=== PATIENT | male | born 2000 | race Caucasian/White ===

== ENCOUNTER 2020-10-23 01:36 | Emergency (ER) | payer MEDICAID ==
[~2020-10-23] VITALS: Ht 175.3 cm; Wt 70.3 kg
--- NOTE | 2020-10-23 01:38 | NUR ---
ANNABELLE ROSARIO. TAKEN TO CHAIR C
[2020-10-23 01:42] VITALS: BP 143/83
--- NOTE | 2020-10-23 02:00 | NUR ---
EKG PERFORMED IN PHLEBOTOMY CHAIR WITH SCREEN. EKG READS SINUS TACHYCARDIA @ 100
--- NOTE | 2020-10-23 02:05 | NUR ---
Pt states he no longer would like to be here. Dr. Esparza made aware and at chairside to explain to pt his condition. Per Pt he understands and would still like to leave against medical advice.
[2020-10-23 02:08] VITALS: BP 143/83
--- NOTE | 2020-10-23 02:08 | NUR ---
Patient does not wish to proceed with medical care recommended by Dr. Esparza. Patient given information related to possible complications, up to and including , which could occur as a result of leaving hospital at this time. Patient verbalizes understanding of risks involved leaving against medical advice. Patient has signed AMA form.
== END 2020-10-23 02:08 | disposition left against medical advice (07) ==
LOC: MED 01:36
DX: T40.601A Poisoning by unspecified narcotics, accidental (unintentional), initial encounter (principal); R07.89 Other chest pain; Y92.89 Other specified places as the place of occurrence of the external cause
CPT/HCPCS: 93005; 99283

== ENCOUNTER 2023-02-09 17:20 | Emergency (ER) | payer BC, MEDICAID ==
[~2023-02-09] VITALS: Ht 172.7 cm; Wt 88.9 kg
[2023-02-09 17:22] VITALS: BP 130/101
[2023-02-09] MEDS ORDERED: IBUP-1842 PO (18:48)
[2023-02-09] MEDS ORDERED: IBUPROFEN 600 MG TAB PO ONE (19:05)
--- NOTE | 2023-02-09 19:08 | NUR ---
SHORT LEG POSTERIOR APPLIED TO L LOWER LEG. + CMS. AMELIA WRAP X 2. PT GIVEN CRUTCHES AND RETURNED SAFE DEMONSTRATION.
[2023-02-09 19:21] VITALS: BP 130/101
== END 2023-02-09 19:21 | disposition home or self-care (01) ==
LOC: MED 17:20
DX: S82.52XA Displaced fracture of medial malleolus of left tibia, initial encounter for closed fracture (principal); R03.0 Elevated blood-pressure reading, without diagnosis of hypertension; Z79.899 Other long term (current) drug therapy; W17.89XA Other fall from one level to another, initial encounter; Y93.89 Activity, other specified; Y92.89 Other specified places as the place of occurrence of the external cause; Y99.8 Other external cause status
CPT/HCPCS: 29515; 73610; 73630; 99284

== ENCOUNTER 2023-02-14 14:14 | Emergency (ER) | payer BC ==
[~2023-02-14] VITALS: Ht 175.3 cm; Wt 87.1 kg
[~2023-02-14 14:14] MED LIST: IBUP-1842 PO
[2023-02-14 14:56] VITALS: BP 125/95
--- NOTE | 2023-02-14 14:57 | NUR ---
WILLIAM LOZANO EVALUATING PT IN TRIAGE ROOM
--- NOTE | 2023-02-14 15:03 | NUR ---
PATIENT AMBULATED TO CHAIR C WITH STEADY/EVEN GAIT.
--- NOTE | 2023-02-14 15:53 | NUR ---
pt ambulated to bed 4
[2023-02-14 16:21] LABS: HEMATOCRIT 36.5 % (36-52); HEMOGLOBIN 12.5 g/dL (12.0-18.0); LYMPHOCYTES % (AUTO) 50.2 % (20.5-51.1); MEAN CORPUSCULAR HEMOGLOBIN 30 pg (27-31); MEAN CORPUSCULAR HGB CONC 34 g/dL (33-37); MEAN CORPUSCULAR VOLUME 88.9 fL (80-94); MONOCYTES # (AUTO) 0.7 K/uL (0.8-1.0); MONOCYTES % (AUTO) 11.8 % (1.7-9.3); NEUTROPHILS # (AUTO) 2.2 K/uL (1.8-7.7); PLATELET COUNT (AUTO) 287 K/uL (140-450); RED BLOOD CELL COUNT(AUTO) 4.11 MIL/uL (4.20-6.10); RED CELL DISTRIBUTION WIDTH 13.5 % (11.6-13.7); WHITE BLOOD COUNT (AUTO) 5.9 K/uL (4.8-10.8)
[2023-02-14 16:42] LABS: C-REACTIVE PROTEIN QUANT < 0.2 mg/dL (0.0-0.9)
[2023-02-14 16:47] LABS: ALBUMIN 3.5 g/dL (3.4-5.0); ANION GAP 8.1 (8-16); CARBON DIOXIDE 31.7 mmol/L (21-32); CREATININE 0.9 mg/dL (0.6-1.3); POTASSIUM 3.8 mmol/L (3.5-5.1); TOTAL BILIRUBIN 0.5 mg/dL (0.0-1.0)
[2023-02-14] MEDS ORDERED: IBUPROFEN 800 MG TAB ONE (17:12)
[2023-02-14] MEDS ORDERED: IBUPROFEN 800 MG TAB PO ONE (17:35)
[2023-02-14] MEDS ORDERED: METH4TAB1 PO (18:09)
--- NOTE | 2023-02-14 19:12 | NUR ---
AWARE OF ADMISSION TO HOSPITAL. CARDIAC DIET ORDERED, PT VERBALIZED HUNGER. DENIES CHEST PAIN OR SOB, IN LOW FOWLERS POSITION IN BED
[2023-02-14 19:27] VITALS: BP 125/95
--- NOTE | 2023-02-14 19:28 | NUR ---
Patient discharged with v/s stable. Written and verbal after care instructions given and explained. Patient verbalized understanding. Ambulatory with steady gait. All questions addressed prior to discharge. Advised to follow up with PMD.
== END 2023-02-14 19:28 | disposition home or self-care (01) ==
LOC: MED 14:14
DX: S82.892A Other fracture of left lower leg, initial encounter for closed fracture (principal); R06.02 Shortness of breath; R06.2 Wheezing; R03.0 Elevated blood-pressure reading, without diagnosis of hypertension; R60.9 Edema, unspecified; X58.XXXA Exposure to other specified factors, initial encounter; Y93.89 Activity, other specified; Y92.89 Other specified places as the place of occurrence of the external cause; Y99.8 Other external cause status
CPT/HCPCS: 29515; 36415; 71046; 73590; 73610; 73630; 80053; 83880; 84484; 85025; 85379; 85651; 86140; 93005; 93970; 99285; Q0092